=== PATIENT | female | born 1970 | race Caucasian/White ===

== ENCOUNTER 2021-01-21 20:13 | Emergency (ER) | payer MEDICAID ==
[~2021-01-21] VITALS: Ht 165.1 cm; Wt 64.0 kg
[2021-01-21] MEDS ORDERED: KETOROLAC 60MG/2ML VIAL IM ONE (20:45)
[2021-01-22] MEDS ORDERED: IBUP-2029 MT (01:00)
[2021-01-22] MEDS ORDERED: CYCL10TA7 MT (01:01)
[2021-01-22 01:17] VITALS: BP 130/85
== END 2021-01-22 01:18 | disposition home or self-care (01) ==
LOC: ER 20:13
DX: S01.81XA Laceration without foreign body of other part of head, initial encounter (principal); S70.02XA Contusion of left hip, initial encounter; V43.52XA Car driver injured in collision with other type car in traffic accident, initial encounter; Y93.89 Activity, other specified; Y92.488 Other paved roadways as the place of occurrence of the external cause
CPT/HCPCS: 12013; 70450; 72100; 72125; 73502; 81025; 96372; 99285; J1885